=== PATIENT | female | born 1995 | race African-American/Black ===

== ENCOUNTER 2017-07-30 09:29 | Emergency (ER) | payer OTHER, MEDICAID ==
[~2017-07-30] VITALS: Ht 167.6 cm; Wt 78.0 kg
[2017-07-30 10:18] LABS: Urine Bacteria NONE SEEN /hpf (None Seen); Urine Blood 2+ /uL (Negative); Urine Specific Gravity 1.017 (1.001-1.035); Urine WBC 1 /hpf (0 - 5)
[2017-07-30 10:26] LABS: Basophils # (auto) 0 uL; Basophils % (auto) 0.2 % (0.0-2.0); Eosinophils # (auto) 0 uL; Eosinophils % (auto) 0.5 % (0.0-7.0); Hematocrit 39.4 % (36.0-46.0); Hemoglobin 12.9 g/dL (12.2-16.2); Lymphocytes # (auto) 2.2 uL; Lymphocytes % (auto) 38.1 % (10.0-50.0); Mean Corpuscular Hemoglobin 31.4 pg (28.0-32.0); Mean Corpuscular Hgb Conc. 32.6 g/dL (32.0-36.0); Mean Corpuscular Volume 96.4 fL (80.0-100.0); Monocytes # (auto) 0.4 uL; Monocytes % (auto) 6.4 % (0.0-12.0); Neutrophils # (auto) 3.1 uL; Neutrophils % (auto) 54.8 % (37.0-80.0); Platelet Count (auto) 204 10^3/uL (140-450); Red Blood Cells 4.09 10^6/uL (4.0-5.20); Red Cell Distribution Width 13.5 % (11.8-14.3); White Blood Cell 5.7 10^3/uL (4.4-10.8)
[2017-07-30 10:55] LABS: Albumin 3.8 g/dL (3.4-5.0); BUN/Creatinine Ratio 17.3; Bilirubin, Total 0.3 mg/dL (0.2-1.0); Calcium 8.6 mg/dL (8.5-10.1); Potassium 3.7 mmol/L (3.5-5.1); Total Protein 7.2 g/dL (6.4-8.2)
[2017-07-30] MEDS ORDERED: SODIUM CHLORIDE 0.9% 1,000 ML IV ONE (11:59)
[2017-07-30] MEDS ORDERED: KETOROLAC TROMETH 30 MG/ML 1ML VIAL IV ONE (12:00)
[2017-07-30] MEDS ORDERED: METOCLOPRAMIDE HCL 5MG/ml INJ 2ml VIAL IV ONE (12:00)
[2017-07-30 13:05] LABS: Magnesium 1.8 mg/dL (1.6-2.6)
[2017-07-30 13:24] VITALS: BP 122/62
== END 2017-07-30 15:34 | disposition home or self-care (01) ==
LOC: EDBD 09:29 → ER 09:29
DX: K29.70 Gastritis, unspecified, without bleeding (principal); F17.210 Nicotine dependence, cigarettes, uncomplicated; E78.5 Hyperlipidemia, unspecified
CPT/HCPCS: 36415; 74176; 80053; 81001; 81025; 83690; 83735; 84443; 84702; 85025; 96361; 96374; 99285; J1885; J7030

== ENCOUNTER 2017-11-23 21:54 | Emergency (ER) | payer OTHER ==
[~2017-11-23] VITALS: Ht 167.6 cm; Wt 59.0 kg
[2017-11-23 22:24] LABS: Hematocrit 40.8 % (36.0-46.0); Hemoglobin 13.3 g/dL (12.2-16.2); Mean Corpuscular Hemoglobin 31.2 pg (28.0-32.0); Mean Corpuscular Hgb Conc. 32.6 g/dL (32.0-36.0); Mean Corpuscular Volume 95.7 fL (80.0-100.0); Platelet Count (auto) 215 10^3/uL (140-450); Red Blood Cells 4.26 10^6/uL (4.0-5.20); Red Cell Distribution Width 14.3 % (11.8-14.3)
[2017-11-23 22:27] LABS: Band Neutrophils % (manual) 0; Basophils % (manual) 0 (0.0-2.0); Blast Cells 0; Eosinophils % (manual) 0 (0-7); Metamyelocytes % 0; Myelocytes % 0; Promyelocytes % 0; Reactive Lymphocytes 0
[2017-11-23 22:42] LABS: Lymphocytes % (manual) 66 (10.0-50.0); Monocytes % (manual) 5 (0-12)
[2017-11-23 22:56] LABS: Albumin 4.1 g/dL (3.4-5.0); BUN/Creatinine Ratio 9.1; Bilirubin, Total 0.4 mg/dL (0.2-1.0); Potassium 3.7 mmol/L (3.5-5.1); Total Protein 7.6 g/dL (6.4-8.2)
[2017-11-23 23:52] LABS: Urine Bacteria FEW /hpf (None Seen); Urine Blood Negative /uL (Negative); Urine Specific Gravity 1.006 (1.001-1.035); Urine WBC 2 /hpf (0 - 5)
[2017-11-24] MEDS ORDERED: ONDANSETRON HCL 4 MG/2 ML VIAL IV ONE (01:30)
[2017-11-24] MEDS ORDERED: NALBUPHINE HCL 10 MG/1ml INJECTION IV ONE (01:30)
[2017-11-24 02:21] VITALS: BP 112/53
== END 2017-11-24 04:13 | disposition home or self-care (01) ==
LOC: EDBD 21:54 → ER 21:59
DX: N83.209 Unspecified ovarian cyst, unspecified side (principal); F17.210 Nicotine dependence, cigarettes, uncomplicated; E78.5 Hyperlipidemia, unspecified
CPT/HCPCS: 36415; 76830; 76856; 80053; 81001; 84702; 85007; 85027; 96374; 96375; 99285; J2300; J2405

== ENCOUNTER 2023-11-05 11:07 | Emergency (ER) | payer MEDICAID, OTHER ==
[~2023-11-05] VITALS: Ht 167.6 cm; Wt 99.7 kg
[2023-11-05 11:57] LABS: Basophils # (auto) 0 10 ^3/uL (0-0.2); Basophils % (auto) 0.7 % (0.0-2.0); Eosinophils # (auto) 0.2 10 ^3/uL (0-0.8); Eosinophils % (auto) 3.4 % (0.0-7.0); Hematocrit 37.9 % (36.0-46.0); Hemoglobin 12.7 g/dL (12.2-16.2); Mean Corpuscular Hgb Conc. 33.6 g/dL (32.0-36.0); Mean Corpuscular Volume 95.3 fL (80.0-100.0); Monocytes # (auto) 0.4 10 ^3/uL (0-1.3); Monocytes % (auto) 5.6 % (0.0-12.0); Neutrophils # (auto) 2.7 10 ^3/uL (1.6-8.6); Neutrophils % (auto) 42.3 % (37.0-80.0); Nucleated Red Blood Cells % 0.1 %; Red Blood Cells 3.98 10^6/uL (4.0-5.20); Red Cell Distribution Width 13.6 % (11.8-14.3); White Blood Cell 6.3 10^3/uL (4.4-10.8)
[2023-11-05 12:07] LABS: Chloride 111 mmol/L (98-107); Potassium 4.4 mmol/L (3.5-5.1); Sodium 141 mmol/L (136-145)
[2023-11-05 12:08] LABS: Anion Gap 2 (5-15); Carbon Dioxide 28 mmol/L (20-30)
[2023-11-05 12:09] LABS: Calcium 8.7 mg/dL (8.7-10.4)
[2023-11-05 12:13] LABS: BUN/Creatinine Ratio 6.8 (10.0-20.0); Blood Urea Nitrogen 5 mg/dL (9-23); Glucose 109 mg/dL (74-106)
[2023-11-05 13:29] VITALS: BP 118/46; PULSE 74; RESP 16; TEMP 98; O2SAT 97
== END 2023-11-05 13:36 | disposition home or self-care (01) ==
LOC: ER 11:11
DX: R60.0 Localized edema (principal); F12.10 Cannabis abuse, uncomplicated; E78.5 Hyperlipidemia, unspecified; I82.403 Acute embolism and thrombosis of unspecified deep veins of lower extremity, bilateral
CPT/HCPCS: 36415; 80048; 85025; 93970

== ENCOUNTER 2023-12-03 19:25 | Emergency (ER) | payer MEDICAID ==
[~2023-12-03] VITALS: Ht 167.6 cm; Wt 100.0 kg
[2023-12-03 19:28] VITALS: BP 117/78; RESP 18; O2SAT 98
[2023-12-03 19:45] LABS: Basophils # (auto) 0 10 ^3/uL (0-0.2); Basophils % (auto) 0.5 % (0.0-2.0); Eosinophils # (auto) 0.3 10 ^3/uL (0-0.8); Eosinophils % (auto) 4.2 % (0.0-7.0); Hematocrit 38.1 % (36.0-46.0); Hemoglobin 12.4 g/dL (12.2-16.2); Lymphocytes # (auto) 3.6 10 ^3/uL (0.4-5.4); Lymphocytes % (auto) 53.3 % (10.0-50.0); Mean Corpuscular Hemoglobin 31.4 pg (28.0-32.0); Mean Corpuscular Hgb Conc. 32.6 g/dL (32.0-36.0); Mean Corpuscular Volume 96.5 fL (80.0-100.0); Monocytes # (auto) 0.4 10 ^3/uL (0-1.3); Neutrophils # (auto) 2.4 10 ^3/uL (1.6-8.6); Nucleated Red Blood Cells % 0.2 %; Platelet Count (auto) 227 10^3/uL (140-450); Red Blood Cells 3.95 10^6/uL (4.0-5.20); Red Cell Distribution Width 13.4 % (11.8-14.3); White Blood Cell 6.8 10^3/uL (4.4-10.8)
[2023-12-03 20:03] LABS: Alanine Aminotransferase 13 U/L (7-40); Albumin 3.6 g/dL (3.2-4.8); Alkaline Phosphatase 66 U/L (46-116); Anion Gap 0 (5-15); Aspartate Aminotransferase 14 U/L (13-40); BUN/Creatinine Ratio 10.3 (10.0-20.0); Blood Urea Nitrogen 8 mg/dL (9-23); Calcium 9.1 mg/dL (8.7-10.4); Carbon Dioxide 29 mmol/L (20-30); Chloride 111 mmol/L (98-107); Glucose 86 mg/dL (74-106); Magnesium 1.6 mg/dL (1.6-2.6); Sodium 140 mmol/L (136-145)
[2023-12-03 20:04] LABS: Bilirubin, Total 0.2 mg/dL (0.2-1.0); Total Protein 5.3 g/dL (5.7-8.2)
[2023-12-03 20:06] LABS: INR 0.99 (0.9-1.15); Partial Thromboplastin Time 25.1 SEC (24.5-34.5); Prothrombin Time 10.5 sec (9.3-11.8)
[2023-12-03 20:23] VITALS: PULSE 77
[2023-12-03] MEDS: LORazepam 0.5 MG TAB PO ONE (21:57)
== END 2023-12-03 22:07 | disposition home or self-care (01) ==
LOC: ER 19:25
DX: F41.9 Anxiety disorder, unspecified (principal); R07.89 Other chest pain; E78.5 Hyperlipidemia, unspecified; F15.90 Other stimulant use, unspecified, uncomplicated; Z98.890 Other specified postprocedural states; Z79.899 Other long term (current) drug therapy
CPT/HCPCS: 36415; 71045; 80053; 83735; 83880; 84484; 85025; 85610; 85730; 93005

== ENCOUNTER 2024-03-23 02:05 | Emergency (ER) | payer MEDICAID ==
[~2024-03-23] VITALS: Ht 167.6 cm; Wt 99.3 kg
--- NOTE | 2024-03-23 02:24 | ED.PDOC ---
SOB-HPI HPI Comments 29-year-old female who came to ER for shortness of breath. About an hour ago, patient was on her way to work when she started having dry nonproductive cough associated with nausea, shortness of breath and chest tightness. Patient does have history of bronchitis. No fever noted. Patient coming in for further evaluation and management Chief Complaint: Shortness of breath Time Seen by MD: 02:23 Primary Care Provider: unknown Reviewed notes: Nurses Notes Information Source: Patient Mode of Arrival: Ambulatory Severity: Moderate Timing: Minutes Duration: Since onset Context: At Rest, With Light Exertion PE Risk Factors: None History of: Other (Bronchitis) Prehospital treatment: None Modifying Factors: Nothing Associated Signs and Symptoms: Cough, Chest Pain If cough with SOB: Non-Productive Past Medical History PAST MEDICAL HISTORY: High Lipids Past Medical History (Other): Bronchitis Surgical History: Denies all surgeries 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 TABLE 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 ENTRY TABLE OPERATOR History, Ovarian Cysts Family History Family History: Reviewed,noncontributory to illness Social History Smoker: Non-Smoker Alcohol: Occasionally Drugs: Denies Drug Use Lives In: Home Constitutional: denies: chills, diaphoresis, fatigue, fever, malaise, sweats, weakness, others EENTM: denies: blurred vision, double vision, ear bleeding, ear discharge, ear drainage, ear pain, ear ringing, eye pain, eye redness, hearing loss, mouth pain, mouth swelling, nasal discharge, nose bleeding, nose congestion, nose pain, photophobia, tearing, throat pain, throat swelling, voice changes, others Respiratory: reports: cough, SOB at rest, shortness of breath; denies: hemoptysis, orthopnea, SOB with excertion, stridor, wheezing, others Cardiovascular: reports: chest pain; denies: dizzy spells, diaphoresis, Dyspnea on exertion, edema, irregular heart beat, left arm pain, lightheadedness, palpitations, PND, syncope, others Gastrointestinal: reports: nausea; denies: abdomen distended, abdominal pain, blood streaked bowels, constipated, diarrhea, dysphagia, difficulty swallowing, hematemesis, melena, poor appetite, poor fluid intake, rectal bleeding, rectal pain, vomiting, others Genitourinary: denies: abnormal vagina bleeding, burning, dyspareunia, dysuria, flank pain, frequency, hematuria, incontinence, pain, , vagina discharge, urgency, others Neurological: denies: dizziness, fainting, headache, left sided numbness, left sided weakness, numbness, paresthesia, pre-existing deficit, right sided numbness, right sided weakness, seizure, speech problems, tingling, tremors, weakness, others Musculoskeletal: denies: back pain, gout, joint pain, joint swelling, muscle pain, muscle stiffness, neck pain, others Integumetry: denies: bruises, change in color, change in hair/nails, dryness, laceration, lesions, lumps, rash, wounds, others Allergic/Immunocompromised: denies: Difficulty Healing, Frequent Infections, Hi ves, Itching, others Hematologic/Lymphatic: denies: anemia, blood clots, easy bleeding, easy bruising, swollen glands, others Endocrine: denies: excessive hunger, excessive sweating, excessive thirst, excessive urination, flushing, intolerance to cold, intolerance to heat, unexplained weight gain, unexplained weight loss, others Psychiatric: denies: anxiety, bipolar disorder, depression, hopeless, panic disorder, schizophrenia, sleepless, suicidal, others Physical Exam General Appearance: No Apparent Distress, Normal HEENT: Normal ENT Inspection, Pharynx Normal, TMs Normal Neck: Full Range of Motion, Non-Tender, Normal, Normal Inspection Respiratory: Chest Non-Tender, Lungs Clear, No Accessory Muscle Use, No Respiratory Distress, Normal Breath Sounds Cardiovascular: No Edema, No JVD, No Murmur, No Gallop, Normal Peripheral P ulses, Regular Rate/Rhythm Breast Exam: Deferred Gastrointestinal: No Organomegaly, Non Tender, No Pulsatile Mass, Normal Bowel Sounds, Soft Genitalia: Deferred Pelvic: Deferred Rectal: Deferred Extremities: No calf tenderness, Normal capillary refill, Normal inspection, Normal range of motion, Non-tender, No pedal edema Musculoskeletal : Apperance: Normal Neurologic: Alert, brand director II-XII nml as Tested, No Motor Deficits, Normal Affect, Normal Mood, No Sensory Deficits Cerebellar Function: Normal Reflexes: Normal Skin: Dry, Normal Color, Warm Lymphatic: No Adenopathy Was a procedure done? Was a procedure done?: No Differential Dx Differential Diagnosis: Anxiety, Asthma, Bronchitis, Myocardial infarction, Panic Attack, Pneumonia X-Ray, Labs, Meds, VS Vital Signs Date Time Temp Pulse Resp B/P (MAP) Pulse Ox O2 Delivery O2 Flow Rate FiO2 03/23/24 03:18 84 03/23/24 02:14 97 03/23/24 02:05 98.9 92 18 118/77 (91) 99 Lab Test 03/23/24 03:10 03/23/24 02:24 03/23/24 02:12 Range/Units Troponin I High Sensitivity < 3 L < 3 L </=34 ng/L Influenza Type A Antigen Negative Negative Influenza Type B Antigen Negative Negative SARS-CoV-2 Antigen (Rapid) Negative NEGATIVE White Blood Count 5.4 4.4-10.8 10^3/uL Red Blood Count 4.02 4.0-5.20 10^6/uL Hemoglobin 12.5 12.2-16.2 g/dL Hematocrit 38.1 36.0-46.0 % Mean Corpuscular Volume 94.7 80.0-100.0 fL Mean Corpuscular Hemoglobin 31.2 28.0-32.0 pg Mean Corpuscular Hemoglobin Concent 32.9 32.0-36.0 g/dL Red Cell Distribution Width 13.9 11.8-14.3 % Platelet Count 219 140-450 10^3/uL Mean Platelet Volume 8.4 6.9-10.8 fL Neutrophils (%) (Auto) 62.2 37.0-80.0 % Lymphocytes (%) (Auto) 31.1 10.0-50.0 % Monocytes (%) (Auto) 5.3 0.0-12.0 % Eosinophils (%) (Auto) 1.0 0.0-7.0 % Basophils (%) (Auto) 0.4 0.0-2.0 % Neutrophils # (Auto) 3.3 1.6-8.6 10 ^3/uL Lymphocytes # (Auto) 1.7 0.4-5.4 10 ^3/uL Monocytes # (Auto) 0.3 0-1.3 10 ^3/uL Eosinophils # (Auto) 0.1 0-0.8 10 ^3/uL Basophils # (Auto) 0 0-0.2 10 ^3/uL Nucleated Red Blood Cells 0.1 % Sodium Level 139 136-145 mmol/L Potassium Level 4.1 3.5-5.1 mmol/L Chloride Level 106 98-107 mmol/L Carbon Dioxide Level 27 20-31 mmol/L Anion Gap 6 5-15 Blood Urea Nitrogen 9 9-23 mg/dL Creatinine 0.82 0.550-1.02 mg/dL Glomerular Filtration Rate Calc 99 >90 mL/min BUN/Creatinine Ratio 11.0 10.0-20.0 Serum Glucose 106 74-106 mg/dL Calcium Level 10.0 8.7-10.4 mg/dL Time of 1ST Reevaluation: 02:20 Reevaluation 1ST: Unchanged Patient Education/Counseling: Diagnosis, Treatment Family Education/Counseling: No Family Present Departure 1 Departure Time of Disposition: 04:39 (Patient likely with viral syndrome. We will discharge patient home with outpatient follow up) Impression: Primary Impression: Acute viral syndrome Additional Impression: Shortness of breath Disposition: 01 HOME / SELF CARE / HOMELESS Condition: Stable Additional Instructions: You likely have a viral illness. It is important to stay well rested and well hydrated. You can take Tylenol and Motrin as needed for pain and fever. For a sore throat you can drink warm tea with honey. You can take [id number] pseudoephedrine for nasal congestion. He should follow up with your regular doctor within 1 week to ensure you are doing better. If your symptoms worsen or you have any other concerns please return to the emergency room. Discharged With: Self Critical Care Note Critical Care Time?: No Stability Stability form required: No Heart Score Heart Score: Heart Score Response (Comments) Value History Slightly Suspicious 0 EKG Normal 0 Age <45 0 Risk Factors 1 or 2 risk factors 1 Troponin Normal limit 0 Total 1 I personally scribed for PATRICIA WHITE MD ([email or web address]) on 03/23/24 at 02:24. Electronically submitted by Steven River ([email or web address]). PATRICIA WHITE MD Mar 23, 2024 02:24
[2024-03-23 03:14] LABS: Basophils # (auto) 0 10 ^3/uL (0-0.2); Basophils % (auto) 0.4 % (0.0-2.0); Eosinophils # (auto) 0.1 10 ^3/uL (0-0.8); Hematocrit 38.1 % (36.0-46.0); Hemoglobin 12.5 g/dL (12.2-16.2); Lymphocytes # (auto) 1.7 10 ^3/uL (0.4-5.4); Lymphocytes % (auto) 31.1 % (10.0-50.0); Mean Corpuscular Hemoglobin 31.2 pg (28.0-32.0); Mean Corpuscular Hgb Conc. 32.9 g/dL (32.0-36.0); Mean Corpuscular Volume 94.7 fL (80.0-100.0); Monocytes # (auto) 0.3 10 ^3/uL (0-1.3); Monocytes % (auto) 5.3 % (0.0-12.0); Neutrophils # (auto) 3.3 10 ^3/uL (1.6-8.6); Neutrophils % (auto) 62.2 % (37.0-80.0); Nucleated Red Blood Cells % 0.1 %; Platelet Count (auto) 219 10^3/uL (140-450); Red Blood Cells 4.02 10^6/uL (4.0-5.20); Red Cell Distribution Width 13.9 % (11.8-14.3); White Blood Cell 5.4 10^3/uL (4.4-10.8)
[2024-03-23 03:25] LABS: Anion Gap 6 (5-15); Carbon Dioxide 27 mmol/L (20-31); Chloride 106 mmol/L (98-107); Potassium 4.1 mmol/L (3.5-5.1); Sodium 139 mmol/L (136-145)
[2024-03-23 03:31] LABS: Blood Urea Nitrogen 9 mg/dL (9-23); Glucose 106 mg/dL (74-106)
[2024-03-23 03:45] LABS: COVID19 ANTIGEN SOFIA FIA NEGATIVE (NEGATIVE)
[2024-03-23 03:46] LABS: Rapid Influenza A Negative (Negative); Rapid Influenza B Negative (Negative)
--- NOTE | 2024-03-23 04:21 | DVH ---
CHEST RADIOGRAPH Indication: sob Technique: Frontal and lateral view of the chest was obtained Comparison: None IMPRESSION: The heart appears normal in size. The lungs appear clear without focal airspace opacity, effusion, o r pneumothorax.
[2024-03-23 04:38] VITALS: BP 129/67; TEMP 98.9
[2024-03-23] MEDS: ALBUTEROL SULF 2.5 MG/0.5ML(0.5%) NEB SOLN NEB ONE (04:53)
[2024-03-23 04:54] VITALS: PULSE 85; RESP 16; O2SAT 99
[2024-03-23] MEDS: DexAMETHasone SOD PHOS 4 MG/1ML SDV INJ PO ONE (04:56)
--- NOTE | 2024-03-25 05:49 | ECG ---
[facility] Test Date: 2024-03-23 Test Time: 02:14:28 Pat Name: CORA NASSAR Department: ED Room: Gender: F Gallery Assistant: bautista : 1995 Requested By: PATRICIA WHITE Order Number: [id number] Reading MD: Measurements Intervals [place] Rate: 97 P: 81 GA: 139 QRS: 71 QRSD: 88 T: 60 QT: 356 QTc: 452 Interpretive Statements Sinus rhythm Please click the below link to view image of tracing.
--- NOTE | 2024-03-26 12:58 | ECG ---
[facility] Test Date: 2024-03-23 Test Time: 03:18:14 Pat Name: CORA NASSAR Department: ER Room: Gender: F Ostomy Care Nurse: ER : 1995 Requested By: PATRICIA WHITE Order Number: [id number] Reading MD: Measurements Intervals [place] Rate: 84 P: 61 [place]: 141 QRS: 72 QRSD: 92 T: 50 QT: 355 QTc: 420 Interpretive Statements Sinus rhythm Please click the below link to view image of tracing.
== END 2024-03-23 05:13 | disposition home or self-care (01) ==
LOC: ER 02:05
DX: B34.9 Viral infection, unspecified (principal); R06.02 Shortness of breath; E78.5 Hyperlipidemia, unspecified; Z20.822 Contact with and (suspected) exposure to COVID-19
CPT/HCPCS: 36415; 71046; 80048; 84484; 85025; 87426; 87804; 93005; 94640; J1100

== ENCOUNTER 2024-03-24 16:42 | Inpatient (IN) | payer MEDICAID ==
[~2024-03-24] VITALS: Ht 167.6 cm; Wt 98.3 kg
--- NOTE | 2024-03-24 16:59 | ED.PDOC ---
History of Present Illness HPI Comments 29-year-old female came to the ER complaining of shortness a breath cough since Monday. She was seen in this ER yesterday for which she was given a steroid breathing treatment and sent home without a prescription. Patient comes back stating that she got worse. She is having a fever since this morning. Denies smoking. Denies asthma COPD. Denies any other symptoms. 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 ENGINEERING MANAGER History, Ovarian Cysts Family History Family History: Reviewed,noncontributory to illness Social History Smoker: Non-Smoker Alcohol: Occasionally Drugs: Denies Drug Use Lives In: Home Constitutional: reports: fever; denies: chills, diaphoresis, fatigue, malaise, sweats, weakness, others EENTM: denies: blurred vision, double vision, ear bleeding, ear discharge, ear drainage, ear pain, ear ringing, eye pain, eye redness, hearing loss, mouth pain, mouth swelling, nasal discharge, nose bleeding, nose congestion, nose pain, photophobia, tearing, throat pain, throat swelling, voice changes, others Respiratory: reports: cough, shortness of breath; denies: hemoptysis, orthopnea, SOB at rest, SOB with excertion, stridor, wheezing, others Cardiovascular: denies: chest pain, dizzy spells, diaphoresis, Dyspnea on exer tion, edema, irregular heart beat, left arm pain, lightheadedness, palpitations, PND, syncope, others Gastrointestinal: denies: abdomen distended, abdominal pain, blood streaked bowels, constipated, diarrhea, dysphagia, difficulty swallowing, hematemesis, melena, nausea, poor appetite, poor fluid intake, rectal bleeding, rectal pain, vomiting, others Genitourinary: denies: abnormal vagina bleeding, burning, dyspareunia, dysuria, flank pain, frequency, hematuria, incontinence, pain, , vagina discharge, urgency, others Neurological: denies: dizziness, fainting, headache, left sided numbness, left sided weakness, numbness, paresthesia, pre-existing deficit, right sided numbness, right sided weakness, seizure, speech problems, tingling, tremors, weakness, others Musculoskeletal: denies: back pain, gout, joint pain, joint swelling, muscle pain, muscle stiffness, neck pain, others Integumetry: denies: bruises, change in color, change in hair/nails, dryness, laceration, lesions, lumps, rash, wounds, others Allergic/Immunocompromised: denies: Difficulty Healing, Frequent Infections, Hives, Itching, others Hematologic/Lymphatic: denies: anemia, blood clots, easy bleeding, easy bruising, swollen glands, others Endocrine: denies: excessive hunger, excessive sweating, excessive thirst, excessive urination, flushing, intolerance to cold, intolerance to heat, unexplained weight gain, unexplained weight loss, others Psychiatric: denies: anxiety, bipolar disorder, depression, hopeless, panic disorder, schizophrenia, sleepless, suicidal, others Physical Exam General Appearance: Moderate Distress HEENT: Normal ENT Inspection, Pharynx Normal, TMs Normal Neck: Full Range of Motion, Non-Tender, Normal, Normal Inspection Respiratory: Lungs Clear, Respiratory Distress, Other (Coarse breath sounds) Cardiovascular: No Edema, No JVD, No Murmur, No Gallop, Normal Peripheral Pulses, Regular Rate/Rhythm Breast Exam: Deferred Gastrointestinal: No Organomegaly, Non Tender, No Pulsatile Mass, Normal Bowel Sounds, Soft Genitalia: Deferred Pelvic: Deferred Rectal: Deferred Extremities: No calf tenderness, Normal capillary refill, Normal inspection, Normal range of motion, Non-tender, No pedal edema Musculoskeletal : Apperance: Normal Neurologic: Alert, No Motor Deficits, No Sensory Deficits Cerebellar Function: NOT DONE Reflexes: NOT DONE Skin: Normal Color Peripheral Pulses: 3+ Radial (R), 3+ Radial (L) Lymphatic: No Adenopathy Was a procedure done? Was a procedure done?: No Differential Dx Considerations may include: Pneumonia Electrolyte imbalance X-Ray, Labs, Meds, VS Patient alert. Complaining of cough shortness a breath. Has been seen in this ER yesterday. Vitals stable. Answering all questions. Reviewed her previous visit. Was given Rocephin. Was given azithromycin. Was given Solu-Medrol. Reviewed her previous visit. Explained to the patient. Continue cardiac monitoring. Time of 1ST Reevaluation: 16:58 Reevaluation 1ST: Unchanged Patient Education/Counseling: Diagnosis, Treatment, Prognosis Family Education/Counseling: No Family Present Departure 1 Departure Time of Disposition: 16:59 Impression: Primary Impression: Acute respiratory distress Additional Impression: Pneumonitis Disposition: ADMITTED INPATIENT Admit to: Med Surg Condition: Guarded Critical Care Note Critical Care Time?: Yes (45 min-critical care time only) Stability Stability form required: No Heart Score Heart Score: Heart Score Response (Comments) Value History N/A 0 EKG N/A 0 Age N/A 0 Risk Factors N/A 0 Troponin N/A 0 Total 0 KAYLA MAYER MD Mar 24, 2024 16:59
[2024-03-24] MEDS ORDERED: methylPREDNISolone SOD SUCC 125 MG/2 ML VL IV ONE (17:00)
[2024-03-24] MEDS ORDERED: cefTRIAXone 1GM/50ML D5W 50 ML IV ONE (17:00)
[2024-03-24] MEDS ORDERED: AZITHROMYCIN 500MG/ 250ML 250 ML IV ONE (17:00)
[2024-03-24] MEDS ORDERED: ACETAMINOPHEN 500 MG TAB or CAP PO ONE (17:00)
[2024-03-24 17:22] LABS: Hematocrit 40.4 % (36.0-46.0); Hemoglobin 13.5 g/dL (12.2-16.2); Mean Corpuscular Hemoglobin 31.3 pg (28.0-32.0); Mean Corpuscular Hgb Conc. 33.6 g/dL (32.0-36.0); Mean Corpuscular Volume 93.2 fL (80.0-100.0); Platelet Count (auto) 182 10^3/uL (140-450); Red Blood Cells 4.33 10^6/uL (4.0-5.20); Red Cell Distribution Width 13.9 % (11.8-14.3)
[2024-03-24 17:25] LABS: Basophils % (manual) 0 (0.0-2.0); Blast Cells 0; Eosinophils % (manual) 0 (0-7); Metamyelocytes % 0; Monocytes % (manual) 0 (0-12); Myelocytes % 0; Promyelocytes % 0; Reactive Lymphocytes 0
[2024-03-24 17:32] LABS: Chloride 107 mmol/L (98-107); Potassium 3.5 mmol/L (3.5-5.1); Sodium 139 mmol/L (136-145)
[2024-03-24 17:33] LABS: Anion Gap 10 (5-15); Calcium 9.9 mg/dL (8.7-10.4); Carbon Dioxide 22 mmol/L (20-31)
[2024-03-24 17:38] LABS: Glucose 97 mg/dL (74-106)
--- NOTE | 2024-03-24 17:41 | DVH ---
EXAM: XY CHEST PORTABLE TECHNIQUE: Single frontal chest radiograph CLINICAL HISTORY: sob COMPARISON: XY CHEST PORTABLE on DOS: 12/03/23 Findings/Impression: Frontal chest radiograph demonstrates no acute osseous or superficial soft tissue abnormalities. The trachea is midline. The cardiac silhouette and mediastinum are within normal limits. No pneumothorax, pleural effusions, or consolidations.
[2024-03-24 18:01] LABS: Blood Urea Nitrogen 7 mg/dL (9-23)
[2024-03-24 18:24] LABS: COVID19 ANTIGEN SOFIA FIA NEGATIVE (NEGATIVE)
[2024-03-24 18:26] LABS: Rapid Influenza B Negative (Negative)
[2024-03-24 18:28] LABS: Rapid Influenza A Positive (Negative)
[2024-03-24 18:59] LABS: Band Neutrophils % (manual) 30; Lymphocytes % (manual) 20 (10.0-50.0); Platelet Estimate Adequate; RBC Morphology Normal
[2024-03-24] MEDS ORDERED: TEMAZEPAM 15 MG CAP PO PRN (19:00)
[2024-03-24] MEDS ORDERED: ALBUTEROL SULF 2.5 MG/0.5ML(0.5%) NEB SOLN NEB PRN (19:00)
[2024-03-24] MEDS ORDERED: ONDANSETRON HCL 4 MG/2 ML VIAL IV PRN (19:00)
[2024-03-24] MEDS ORDERED: ACETAMINOPHEN 325 MG TAB PO PRN (19:00)
[2024-03-25 02:12] VITALS: BP 95/58; PULSE 113; RESP 18; TEMP 100.9; O2SAT 100
--- NOTE | 2024-03-25 04:09 | DVHHP2 ---
History of Present Illness Reason for Visit: Shortness of breath History of Present Illness 29-year-old female presents for evaluation of shortness for breath. Patient endorses a three day history of worsening shortness for breath with a productive cough. Patient was seen yesterday urgency department and sent home without a p rescription. Patient reports worsening cough and fever. Denies any other acute complaints at the moment. Past Medical History Dyslipidemia Past Surgical History Denies Family History Noncontributory Smoke: No ALCOHOL: occassional Drugs: None Lives: with Family Review of Systems Review of Systems Review of systems currently negative addressed in HPI. Allergies: Coded Allergies: NO KNOWN ALLERGIES (Unverified , 07/30/17) Medications Current Medications Medications Dose Ordered Sig/Ariadna Route Start Time Stop Time Status Last Admin Dose Admin Azithromycin 250 ml @ 125 mls/hr DAILY IV 03/25/24 10:00 Albuterol 2.5 mg Q6HPRN PRN NEB 03/24/24 19:00 Temazepam 15 mg QHSP PRN PO 03/24/24 19:00 Ondansetron HCl 4 mg Q4HP PRN IV 03/24/24 19:00 Acetaminophen 650 mg Q6HP PRN PO 03/24/24 19:00 Exam Vital Signs Vital Signs Date Time Temp Pulse Resp B/P (MAP) Pulse Ox O2 Delivery O2 Flow Rate FiO2 03/25/24 02:12 100.9 113 18 95/58 100 21 100.9 03/24/24 16:58 Room Air* 0 Exam Gen: 29-year-old female in mild distress Skin: Warm, dry, normal color and texture, no rash. HEENT: Normocephalic atraumatic, mucous membranes moist and pink. Neck: Cervical and supraclavicular nodes normal without enlargement, trachea is midline, thyroid gland is normal without masses. Pulmonary: Diminished breath sounds bilaterally Cardiac: Regular rate and rhythm. No murmur Abdomen: Soft, nontender, nondistended, bowel sounds present all 4 quadrants, no guarding, no rigidity, no organomegaly. Extremities: No cyanosis, clubbing, no edema Neuro: Cranial nerves II through XII grossly intact, normal affect and speech, no focal motor deficits. Labs/Xrays ORDERING PHYSICIAN: KAYLA MAYER MD PROCEDURE(s): CXRP - CHEST PORTABLE REASON: sob ORDER NUMBER(s): [id number], ACCESSION NUMBER(s): [id number] EXAM: XY CHEST PORTABLE TECHNIQUE: Single frontal chest radiograph CLINICAL HISTORY: sob COMPARISON: XY CHEST PORTABLE on DOS: 12/03/23 Findings/Impression: Frontal chest radiograph demonstrates no acute osseous or superficial soft tissue abnormalities. The trachea is midline. The cardiac silhouette and mediastinum are within normal limits. No pneumothorax, pleural effusions, or consolidations. Labs Test 03/24/24 19:06 03/24/24 17:08 03/24/24 16:54 Range/Units Lactic Acid Level 0.7 0.4-2.0 mmol/L White Blood Count 4.0 #L 4.4-10.8 10^3/uL Red Blood Count 4.33 4.0-5.20 10^6/uL Hemoglobin 13.5 12.2-16.2 g/dL Hematocrit 40.4 36.0-46.0 % Mean Corpuscular Volume 93.2 80.0-100.0 fL Mean Corpuscular Hemoglobin 31.3 28.0-32.0 pg Mean Corpuscular Hemoglobin Concent 33.6 32.0-36.0 g/dL Red Cell Distribution Width 13.9 11.8-14.3 % Platelet Count 182 140-450 10^3/uL Mean Platelet Volume 8.9 6.9-10.8 fL Neutrophils (%) (Auto) 37.0-80.0 % Lymphocytes (%) (Auto) 10.0-50.0 % Monocytes (%) (Auto) 0.0-12.0 % Basophils (%) (Auto) 0.0-2.0 % Neutrophils # (Auto) 1.6-8.6 10 ^3/uL Lymphocytes # (Auto) 0.4-5.4 10 ^3/uL Monocytes # (Auto) 0-1.3 10 ^3/uL Differential Total Cells Counted 100.0 100 Neutrophils % (Manual) 50 37.0-80.0 Band Neutrophils % (Manual) 30 Lymphocytes % (Manual) 20 10.0-50.0 Monocytes % (Manual) 0 0-12 Eosinophils % (Manual) 0 0-7 Basophils % (Manual) 0 0.0-2.0 Metamyelocytes % (manual) 0 Myelocytes % (Manual) 0 Promyelocytes % (Manual) 0 Blast Cells % (Manual) 0 Reactive Lymphocytes 0 Platelet Estimate Adequate Red Blood Cell Morphology Normal D-Dimer, Quantitative 0.38 0.0-0.49 mg/L FEU Sodium Level 139 136-145 mmol/L Potassium Level 3.5 3.5-5.1 mmol/L Chloride Level 107 98-107 mmol/L Carbon Dioxide Level 22 20-31 mmol/L Anion Gap 10 5-15 Blood Urea Nitrogen 7 L 9-23 mg/dL Creatinine 0.88 0.550-1.02 mg/dL Glomerular Filtration Rate Calc 91 >90 mL/min BUN/Creatinine Ratio 8.0 L 10.0-20.0 Serum Glucose 97 74-106 mg/dL Calcium Level 9.9 8.7-10.4 mg/dL Influenza Type A Antigen Positive Negative Influenza Type B Antigen Negative Negative SARS-CoV-2 Antigen (Rapid) Negative NEGATIVE Assessment/Plan Assessment/Plan Assessment Acute pneumonitis Acute respiratory distress SIRS Plan Admit the patient to [facility] to the hospitalist Med [facility] Azithromycin Continue treatment per orders. Plan discussed with: Patient My Orders Orders - JOE MOORE Procedure Category Date Status Time Azithromycin 500mg/ PHA 03/25/24 In Process 250ml (Zithromax 50 10:00 Albuterol Medneb PHA 03/24/24 In Process (Ventolin Medneb) 19:00 Basic Metabolic Panel LAB 03/25/24 Logged 04:00 Regular Diet DIET 03/25/24 Transmitted Breakfast Admit ADMIT 03/24/24 Transmitted 18:50 Temazepam (Restoril) PHA 03/24/24 In Process 19:00 Ondansetron Hcl PHA 03/24/24 In Process (Zofran) 19:00 Complete Blood Count LAB 03/25/24 Logged 04:00 Condition: Stable ANDREA 03/24/24 In Process 18:50 Acetaminophen Tablet PHA 03/24/24 In Process (Tylenol Tablet) 19:00 Bedrest With Bathroom ANDREA 03/24/24 In Process Privileg 18:50 Date of Service: Mar 24, 2024 Billing Provider: JOE MOORE Common Visit Codes: [id number] INP/OBS CARE (MOD) JOE MOORE Mar 25, 2024 04:09
[2024-03-25 06:50] LABS: Anion Gap 8 (5-15); Carbon Dioxide 22 mmol/L (20-31); Chloride 107 mmol/L (98-107); Sodium 137 mmol/L (136-145)
[2024-03-25 06:51] LABS: Potassium 3.4 mmol/L (3.5-5.1)
[2024-03-25 06:52] LABS: Calcium 9.6 mg/dL (8.7-10.4)
[2024-03-25 06:56] LABS: BUN/Creatinine Ratio 11.5 (10.0-20.0); Blood Urea Nitrogen 9 mg/dL (9-23); Glucose 90 mg/dL (74-106)
[2024-03-25 06:57] LABS: Basophils # (auto) 0 10 ^3/uL (0-0.2); Basophils % (auto) 0.6 % (0.0-2.0); Eosinophils # (auto) 0 10 ^3/uL (0-0.8); Eosinophils % (auto) 0.1 % (0.0-7.0); Hematocrit 38.6 % (36.0-46.0); Hemoglobin 12.9 g/dL (12.2-16.2); Lymphocytes # (auto) 1.2 10 ^3/uL (0.4-5.4); Lymphocytes % (auto) 46.9 % (10.0-50.0); Mean Corpuscular Hemoglobin 31.3 pg (28.0-32.0); Mean Corpuscular Hgb Conc. 33.5 g/dL (32.0-36.0); Mean Corpuscular Volume 93.4 fL (80.0-100.0); Monocytes # (auto) 0.3 10 ^3/uL (0-1.3); Monocytes % (auto) 13.6 % (0.0-12.0); Neutrophils % (auto) 38.8 % (37.0-80.0); Nucleated Red Blood Cells % 0.3 %; Platelet Count (auto) 160 10^3/uL (140-450); Red Blood Cells 4.13 10^6/uL (4.0-5.20); Red Cell Distribution Width 13.7 % (11.8-14.3); White Blood Cell 2.5 10^3/uL (4.4-10.8)
[2024-03-25 09:10] VITALS: O2SAT 97
[2024-03-25] MEDS: AZITHROMYCIN 500MG/ 250ML 250 ML IV SCH (10:23)
[2024-03-25 10:30] VITALS: BP 104/63; PULSE 93; RESP 17; O2SAT 97
[2024-03-25] MEDS ORDERED: AZIT-185 PO (11:16)
[2024-03-25] MEDS ORDERED: HYDR-4902 PO (11:16)
[2024-03-25 13:47] VITALS: BP 103/69; PULSE 84; RESP 16; O2SAT 97
--- NOTE | 2024-03-25 15:03 | DVHDS2 ---
Discharge Summary Date of Admission Mar 24, 2024 at 18:50 Date of Discharge: Mar 25, 2024 Labs/Diagnostic Data: Laboratory Results Test 03/25/24 06:17 03/24/24 19:06 03/24/24 17:08 03/24/24 16:54 White Blood Count 2.5 10^3/uL (4.4-10.8) Red Blood Count 4.13 10^6/uL (4.0-5.20) Hemoglobin 12.9 g/dL (12.2-16.2) Hematocrit 38.6 % (36.0-46.0) Mean Corpuscular Volume 93.4 fL (80.0-100.0) Mean Corpuscular Hemoglobin 31.3 pg (28.0-32.0) Mean Corpuscular Hemoglobin Concent 33.5 g/dL (32.0-36.0) Red Cell Distribution Width 13.7 % (11.8-14.3) Platelet Count 160 10^3/uL (140-450) Mean Platelet Volume 9.1 fL (6.9-10.8) Neutrophils (%) (Auto) 38.8 % (37.0-80.0) Lymphocytes (%) (Auto) 46.9 % (10.0-50.0) Monocytes (%) (Auto) 13.6 % (0.0-12.0) Eosinophils (%) (Auto) 0.1 % (0.0-7.0) Basophils (%) (Auto) 0.6 % (0.0-2.0) Neutrophils # (Auto) 1.0 10 ^3/uL (1.6-8.6) Lymphocytes # (Auto) 1.2 10 ^3/uL (0.4-5.4) Monocytes # (Auto) 0.3 10 ^3/uL (0-1.3) Eosinophils # (Auto) 0 10 ^3/uL (0-0.8) Basophils # (Auto) 0 10 ^3/uL (0-0.2) Nucleated Red Blood Cells 0.3 % Sodium Level 137 mmol/L (136-145) Potassium Level 3.4 mmol/L (3.5-5.1) Chloride Level 107 mmol/L (98-107) Carbon Dioxide Level 22 mmol/L (20-31) Anion Gap 8 (5-15) Blood Urea Nitrogen 9 mg/dL (9-23) Creatinine 0.78 mg/dL (0.550-1.02) Glomerular Filtration Rate Calc 105 mL/min (>90) BUN/Creatinine Ratio 11.5 (10.0-20.0) Serum Glucose 90 mg/dL (74-106) Calcium Level 9.6 mg/dL (8.7-10.4) Lactic Acid Level 0.7 mmol/L (0.4-2.0) Differential Total Cells Counted 100.0 (100) Neutrophils % (Manual) 50 (37.0-80.0) Band Neutrophils % (Manual) 30 Lymphocytes % (Manual) 20 (10.0-50.0) Monocytes % (Manual) 0 (0-12) Eosinophils % (Manual) 0 (0-7) Basophils % (Manual) 0 (0.0-2.0) Metamyelocytes % (manual) 0 Myelocytes % (Manual) 0 Promyelocytes % (Manual) 0 Blast Cells % (Manual) 0 Reactive Lymphocytes 0 Platelet Estimate Adequate Red Blood Cell Morphology Normal D-Dimer, Quantitative 0.38 mg/L FEU (0.0-0.49) Influenza Type A Antigen Positive (Negative) Influenza Type B Antigen Negative (Negative) SARS-CoV-2 Antigen (Rapid) Negative (NEGATIVE) Other Laboratory Tests 03/25/24 06:17 Brief Hx & Hospital Course: 29-year-old female presents for evaluation of shortness for breath. Patient endorses a three day history of worsening shortness for breath with a productive cough. Patient was seen yesterday urgency department and sent home without a prescription. Patient reports worsening cough and fever. Condition at Discharge: Good Final Diagnosis/Problems List community acquired pneumonia due to gram negative SIRS sepsis present on admision ruled out acute hypoxic respiratory failure due to pneumonia resolved Discharge Disposition: Home Discharge Instruct/Medications Diet: Regular Activity: No Restrictions, As Tolerated Discharge Statement: "Patient was advised to return to the ER or call 911 if any headaches, dizziness, shortness of breath, chest pain, abdominal pain, bleeding, fevers, or worsening of medical condition. Patient was counseled about treatment plan, medications, possible side effects, patientverbalized understanding. All questions were answered to the best of my ability. This discharge took greater then 30 minutes in planning, reviewing documentation, counseling the patient, and discussing with other team members." ASSESSMENT ASSESSMENT Assessment ACUTE PNEUMONITIS Date of Service: Mar 25, 2024 Billing Provider: STEPHENIE JOHNSON MD Common Visit Codes: 61011-CQA/OBS DISCH DAY >30min STEPHENIE JOHNSON MD Mar 25, 2024 15:03
== END 2024-03-25 14:28 | disposition home or self-care (01) | DRG 137 ==
LOC: ER 16:42 → OVERFLOW 18:50
PROVIDERS: ADMIT Nurse Practitioner; ATTEND Hospitalist
DX: J15.69 Pneumonia due to other Gram-negative bacteria (principal); J96.01 Acute respiratory failure with hypoxia; Z20.822 Contact with and (suspected) exposure to COVID-19; J98.4 Other disorders of lung; E78.5 Hyperlipidemia, unspecified; Z79.899 Other long term (current) drug therapy
CPT/HCPCS: 36415; 71045; 80048; 83605; 85007; 85025; 85027; 85379; 87426; 87804; 99291; G0378

== ENCOUNTER 2024-06-16 14:05 | Emergency (ER) | payer MEDICAID ==
[~2024-06-16] VITALS: Ht 167.6 cm; Wt 96.3 kg
[~2024-06-16 14:05] MED LIST: AZIT-185 PO
--- NOTE | 2024-06-16 14:53 | ED.PDOC ---
SOB-HPI HPI Comments 29 y.o female with PMHx of Bronchitis, glaucoma, seasonal allergies, presents to the ED for a chief complaint of substernal chest pain associated with SOB, productive cough, and clear phlegm sputum. Patient reports PNA diagnose and admission 3 months ago at this hospital, since has had some congestion and SOB but states today felt a sharp discomfort on her chest and back. Patient reports seasonal allergies have been active. She denies any fever, nausea, vomiting, or recent sick contact exposure. 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 Family History Family History: Reviewed,noncontributory to illness Social History Smoker: Non-Smoker Alcohol: Occasionally Drugs: Marijuana Lives In: Home Constitutional: denies: chills, diaphoresis, fatigue, fever, malaise, sweats, weakness, others EENTM: denies: blurred vision, double vision, ear bleeding, ear discharge, ear drainage, ear pain, ear ringing, eye pain, eye redness, hearing loss, mouth pain, mouth swelling, nasal discharge, nose bleeding, nose congestion, nose pain, photophobia, tearing, throat pain, throat swelling, voice changes, others Respiratory: reports: cough, SOB at rest, shortness of breath, SOB with excertion; denies: hemoptysis, orthopnea, stridor, wheezing, others Cardiovascular: reports: chest pain; denies: dizzy spells, diaphoresis, Dyspnea on exertion, edema, irregular heart beat, left arm pain, lightheadedness, palp itations, PND, syncope, others Gastrointestinal: denies: abdomen distended, abdominal pain, blood streaked bowels, constipated, diarrhea, dysphagia, difficulty swallowing, hematemesis, melena, nausea, poor appetite, poor fluid intake, rectal bleeding, rectal pain, vomiting, others Genitourinary: denies: abnormal vagina bleeding, burning, dyspareunia, dysuria, flank pain, frequency, hematuria, incontinence, pain, , vagina discharge, urgency, others Neurological: denies: dizziness, fainting, headache, left sided numbness, left sided weakness, numbness, paresthesia, pre-existing deficit, right sided numbness, right sided weakness, seizure, speech problems, tingling, tremors, weakness, others Musculoskeletal: denies: back pain, gout, joint pain, joint swelling, muscle pain, muscle stiffness, neck pain, others Integumetry: denies: bruises, change in color, change in hair/nails, dryness, laceration, lesions, lumps, rash, wounds, others Allergic/Immunocompromised: denies: Difficulty Healing, Frequent Infections, Hives, Itching, others Hematologic/Lymphatic: denies: anemia, blood clots, easy bleeding, easy br uising, swollen glands, others Endocrine: denies: excessive hunger, excessive sweating, excessive thirst, excessive urination, flushing, intolerance to cold, intolerance to heat, unexplained weight gain, unexplained weight loss, others Psychiatric: denies: anxiety, bipolar disorder, depression, hopeless, panic disorder, schizophrenia, sleepless, suicidal, others All Other Systems: Reviewed and Negative Physical Exam General Appearance: No Apparent Distress HEENT: PERRL/EOMI Neck: Full Range of Motion, Normal Inspection Respiratory: No Accessory Muscle Use, No Respiratory Distress, Rhonchi, Other (productive sounding cough) Cardiovascular: No Edema, No JVD, Regular Rate/Rhythm Breast Exam: Deferred Gastrointestinal: Non Tender, Soft Genitalia: Deferred Pelvic: Deferred Rectal: Deferred Extremities: Normal inspection, Normal range of motion, Non-tender, No pedal edema Neurologic: Alert (oriented x 4), Normal Affect, Normal Mood, Other (ambulatory. no gross focal deficit) Cerebellar Function: NOT DONE Reflexes: NOT DONE Skin: Dry, Normal Color, Warm Lymphatic: NOT DONE Was a procedure done? Was a procedure done?: No Differential Dx Differential Diagnosis: Asthma, Bronchitis, CHF, COPD, Pneumonia, Pulmonary Embolism, Respiratory Distress, URI X-Ray, Labs, Meds, VS Vital Signs Date Time Temp Pulse Resp B/P (MAP) Pulse Ox O2 Delivery O2 Flow Rate FiO2 06/16/24 20:44 98.0 85 20 122/68 (86) 99 98.0 3/2/25 17:12 18 95 Room Air* 0 21 06/16/24 17:11 74 16 100 Room Air* 0 21 06/16/24 17:04 98.2 65 19 111/73 (86) 100 98.2 06/16/24 14:26 20 100 Room Air* 0 21 06/16/24 14:20 98.3 79 20 100/54 (69) 100 Lab Test 06/16/24 15:35 Range/Units White Blood Count 4.5 4.4-10.8 10^3/uL Red Blood Count 4.21 4.0-5.20 10^6/uL Hemoglobin 12.8 12.2-16.2 g/dL Hematocrit 39.5 36.0-46.0 % Mean Corpuscular Volume 94.0 80.0-100.0 fL Mean Corpuscular Hemoglobin 30.4 28.0-32.0 pg Mean Corpuscular Hemoglobin Concent 32.4 32.0-36.0 g/dL Red Cell Distribution Width 14.4 H 11.8-14.3 % Platelet Count 209 140-450 10^3/uL Mean Platelet Volume 8.9 6.9-10.8 fL Neutrophils (%) (Auto) 37.0-80.0 % Lymphocytes (%) (Auto) 10.0-50.0 % Monocytes (%) (Auto) 0.0-12.0 % Basophils (%) (Auto) 0.0-2.0 % Neutrophils # (Auto) 1.6-8.6 10 ^3/uL Lymphocytes # (Auto) 0.4-5.4 10 ^3/uL Monocytes # (Auto) 0-1.3 10 ^3/uL Differential Total Cells Counted 100.0 100 Neutrophils % (Manual) 33 L 37.0-80.0 Band Neutrophils % (Manual) 0 Lymphocytes % (Manual) 60 H 10.0-50.0 Monocytes % (Manual) 4 0-12 Eosinophils % (Manual) 3 0-7 Basophils % (Manual) 0 0.0-2.0 Metamyelocytes % (manual) 0 Myelocytes % (Manual) 0 Promyelocytes % (Manual) 0 Blast Cells % (Manual) 0 Reactive Lymphocytes 0 Platelet Estimate Adequate Anisocytosis (manual) Slight Sodium Level 139 136-145 mmol/L Potassium Level 4.1 3.5-5.1 mmol/L Chloride Level 106 98-107 mmol/L Carbon Dioxide Level 26 20-31 mmol/L Anion Gap 7 5-15 Blood Urea Nitrogen 12 9-23 mg/dL Creatinine 0.93 0.550-1.02 mg/dL Glomerular Filtration Rate Calc 85 >90 mL/min BUN/Creatinine Ratio 12.9 10.0-20.0 Serum Glucose 95 74-106 mg/dL Calcium Level 9.8 8.7-10.4 mg/dL Troponin I High Sensitivity < 3 L </=34 ng/L B-Type Natriuretic Peptide 7.67 0-100 pg/mL Beta HCG, Quantitative 0.2 L 1.5-4.2 mIU/mL Current Medications Medications (Trade) Dose Ordered Sig/Ariadna Route Start Time Stop Time Status Last Admin Albuterol (Ventolin Medneb) 5 mg ONCE ONCE NEB 06/16/24 14:45 06/16/24 14:46 DC 06/16/24 17:12 Ipratropium [place] (Atrovent Medneb) 0.5 mg ONCE ONCE NEB 06/16/24 14:45 06/16/24 14:46 DC 06/16/24 17:12 Dexamethasone Sodium Phosphate (Decadron Injection) 10 mg ONCE ONCE IM 06/16/24 14:45 06/16/24 14:46 DC 06/16/24 17:08 X-Ray, Labs, Meds, VS Comment 29 y.o female with PMHx of Bronchitis, glaucoma, seasonal allergies, presents to the ED for a chief complaint of substernal chest pain associated with SOB, productive cough, and clear phlegm sputum. Vitals unremarkable Exam remarkable for minimal scattered rhonchi and productive sounding cough. No respiratory distress. Rhythm strip independently interpreted by me: Sinus rhythm, rate 79, no ectopy. Chest x-ray CBC, metabolic panel, hCG, BNP and troponin unremarkable for any abnormality of acute significance Patient treated with the following in the ED: Albuterol 5 mg/Atrovent 0.5 mg nebulized, Decadron 10 mg IM Patient was called multiple times for re-evaluation and for chest x-ray, however apparently she had been waiting in her car and it was assumed she had eloped. Chest x-ray was canceled due to the patient not answering when called. It was reordered when the patient re-emerged from her car wondering she was going to be discharged. On re-evaluation, patient states she is no longer short of breath. She has well-appearing with stable vitals. Chest x-ray was reordered, however patient refused chest x-ray stating she would prefer to just go home. Patient appears stable for discharge with close outpatient follow-up with her primary physician. Rx albuterol, ibuprofen, doxycycline, Mucinex Time of 1ST Reevaluation: 14:48 Reevaluation 1ST: Unchanged Patient Education/Counseling: Diagnosis, Treatment, Prognosis Family Education/Counseling: No Family Present Departure 1 Departure Time of Disposition: 20:13 Impression: Primary Impression: Acute cough Additional Impression: Bronchospasm with bronchitis, acute Disposition: 01 HOME / SELF CARE / HOMELESS Condition: Stable Additional Instructions: Your blood tests, including screening tests for heart attack and heart failure, were unremarkable. I have prescribed an inhaler and antibiotics to treat a possible bacterial respiratory infection, as well as pain medication. Follow-up with your primary doctor in 1-2 days. Return to ER for persistent or worsening symptoms. e-Prescriptions Guaifenesin (Mucinex) 600 Mg Tab 1 TAB PO BID PRN, #20 TAB Prn cough or congestion Prov: MILLICENT HOWARD MD 06/16/24 Ibuprofen Micronized (Ibuprofen) 600 Mg Tab 600 MG PO Q6HPRN PRN, #30 TAB Prn fever or pain, take with food Prov: MILLICENT HOWARD MD 06/16/24 Doxycycline (Monohydrate) (Doxycycline) 100 Mg Tab 100 MG PO BID for 10 Days, #20 TAB Prov: MILLICENT HOWARD MD 06/16/24 Albuterol Sulfate (Albuterol Sulfate Hfa) 108 Mcg/Act Aer 2 PUFF IN Q6HP PRN, #1 AER Prn difficulty breathing Prov: MILLICENT HOWARD MD 06/16/24 Critical Care Note Critical Care Time?: No Stability Stability form required: No Heart Score Heart Score: Heart Score Response (Comments) Value History N/A 0 EKG N/A 0 Age N/A 0 Risk Factors N/A 0 Troponin N/A 0 Total 0 I personally scribed for MILLICENT HOWARD MD ([email or web address]) on 06/16/24 at 14:53. Electronically submitted by Shanice Dunn ([facility]). MILLICENT HOWARD MD Jun 16, 2024 14:53
[2024-06-16 15:55] LABS: Hematocrit 39.5 % (36.0-46.0); Hemoglobin 12.8 g/dL (12.2-16.2); Mean Corpuscular Hemoglobin 30.4 pg (28.0-32.0); Mean Corpuscular Hgb Conc. 32.4 g/dL (32.0-36.0); Platelet Count (auto) 209 10^3/uL (140-450); Red Blood Cells 4.21 10^6/uL (4.0-5.20); Red Cell Distribution Width 14.4 % (11.8-14.3); White Blood Cell 4.5 10^3/uL (4.4-10.8)
[2024-06-16 16:00] LABS: Band Neutrophils % (manual) 0; Basophils % (manual) 0 (0.0-2.0); Blast Cells 0; Metamyelocytes % 0; Myelocytes % 0; Promyelocytes % 0; Reactive Lymphocytes 0
[2024-06-16 16:02] LABS: Chloride 106 mmol/L (98-107); Potassium 4.1 mmol/L (3.5-5.1); Sodium 139 mmol/L (136-145)
[2024-06-16 16:03] LABS: Anion Gap 7 (5-15); Calcium 9.8 mg/dL (8.7-10.4); Carbon Dioxide 26 mmol/L (20-31)
[2024-06-16 16:08] LABS: Glucose 95 mg/dL (74-106)
[2024-06-16 16:09] LABS: BUN/Creatinine Ratio 12.9 (10.0-20.0); Blood Urea Nitrogen 12 mg/dL (9-23)
[2024-06-16 16:46] LABS: Anisocytosis Slight; Eosinophils % (manual) 3 (0-7); Lymphocytes % (manual) 60 (10.0-50.0); Monocytes % (manual) 4 (0-12); Platelet Estimate Adequate
[2024-06-16] MEDS: DexAMETHasone SOD PHOS 10MG/1ML VIAL INJ IM ONE (17:08)
[2024-06-16 17:11] VITALS: PULSE 74; RESP 16; O2SAT 100
[2024-06-16] MEDS: ALBUTEROL SULF 2.5 MG/0.5ML(0.5%) NEB SOLN NEB ONE (17:12)
[2024-06-16] MEDS: IPRATROPIUM BROM 0.5 MG/2.5ML INH SOL NEB ONE (17:12)
[2024-06-16] MEDS ORDERED: DOXY-346 PO (20:18)
[2024-06-16] MEDS ORDERED: ALBU108A5 IN (20:18)
[2024-06-16] MEDS ORDERED: IBUP1TAB5 PO (20:18)
[2024-06-16] MEDS ORDERED: GUAI600T78 PO (20:18)
[2024-06-16 20:44] VITALS: BP 122/68; PULSE 85; RESP 20; TEMP 98; O2SAT 99
== END 2024-06-16 20:43 | disposition left against medical advice (07) ==
LOC: ER 14:05
DX: J20.9 Acute bronchitis, unspecified (principal); Z98.890 Other specified postprocedural states
CPT/HCPCS: 36415; 80048; 83880; 84484; 84702; 85007; 85027; 94640; 96372; 99283; J1100

== ENCOUNTER 2024-09-15 19:19 | Emergency (ER) | payer MEDICAID ==
[~2024-09-15] VITALS: Ht 167.6 cm; Wt 92.8 kg
[~2024-09-15 19:19] MED LIST changes: +ALBU108A5 IN; +DOXY-346 PO; +GUAI600T78 PO; +IBUP1TAB5 PO
--- NOTE | 2024-09-15 19:41 | ED.PDOC ---
GI ASSESSMENT HPI Comments 29y F who presents to the ED for chief complaint of abdominal pain. Pt states she has bee having epigastric abdominal pain for the past 2 days. Pt states her pain is constant, non-radiating, with no associated exacerbating or relieving factors. Pt has associated nausea, vomiting and 1 x diarrhea episode earlier this AM but otherwise denies any other symptoms. Pt denies any recent sick contacts or changes to diet. Pt otherwise denies any other symptoms at this time. Time Seen by MD: 19:36 Primary Care Provider: saad Rangel Notes: Medications, Allergies Allergies: Coded Allergies: NO KNOWN ALLERGIES (Unverified , 07/30/17) Home Meds Active Scripts Pantoprazole Sodium Sesquihydr (Protonix) 40 Mg Tab, 40 MG PO DAILY, #30 TAB Prov:CYNTHIA BEAVERS MD 09/15/24 Ondansetron Odt 4MG Tab (ZOFRAN PO) 4 Mg Tb, 4 MG PO Q8HP PRN for 5 Days, #15 TAB ODT TAB-DISSOLVE IN MOUTH, THEN SWALLOW Prov:CYNTHIA BEAVERS MD 09/15/24 Guaifenesin (Mucinex) 600 Mg Tab, 1 TAB PO BID PRN, #20 TAB Prn cough or congestion Prov:MILLICENT HOWARD MD 06/16/24 Ibuprofen Micronized (Ibuprofen) 600 Mg Tab, 600 MG PO Q6HPRN PRN, #30 TAB Prn fever or pain, take with food Prov:MILLICENT HOWARD MD 06/16/24 Doxycycline (Monohydrate) (Doxycycline) 100 Mg Tab, 100 MG PO BID for 10 Days, #20 TAB Prov:MILLICENT HOWARD MD 06/16/24 Albuterol Sulfate (Albuterol Sulfate Hfa) 108 Mcg/Act Aer, 2 PUFF IN Q6HP PRN, #1 AER Prn difficulty breathing Prov:MILLICENT HOWARD MD 06/16/24 Azithromycin (ZITHROMAX TABLET) 250 Mg Tb, 250 MG PO DAILY for 5 Days, #5 TAB Prov:STEPHENIE JOHNSON MD 03/25/24 Information Source: Patient Mode of Arrival: Ambulatory Brought in by: self Timing: Days Duration: Since onset Prehospital treatment: None Quality: Aching Vomitus: Soft Stool: Gross Severity: Moderate Recent: None Recent Hx of: None Pain Location: Epigastric Modifying Factors: Nothing Associated sign and symptoms: Nausea, Vomiting, Diarrhea, Abdominal Pain Past Medical History PAST MEDICAL HISTORY: Denies 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 Family History Family History: Reviewed,noncontributory to illness Social History Smoker: Non-Smoker Alcohol: Occasionally Drugs: Marijuana Lives In: Home Constitutional: denies: chills, diaphoresis, fatigue, fever, malaise, sweats, weakness, others EENTM: denies: blurred vision, double vision, ear bleeding, ear discharge, ear drainage, ear pain, ear ringing, eye pain, eye redness, hearing loss, mouth pain, mouth swelling, nasal discharge, nose bleeding, nose congestion, nose pain, photophobia, tearing, throat pain, throat swelling, voice changes, others Respiratory: denies: cough, hemoptysis, orthopnea, SOB at rest, shortness of breath, SOB with excertion, stridor, wheezing, others Cardiovascular: denies: chest pain, dizzy spells, diaphoresis, Dyspnea on exertion, edema, irregular heart beat, left arm pain, lightheadedness, palpitati ons, PND, syncope, others Gastrointestinal: reports: abdominal pain, diarrhea, nausea, vomiting; denies: abdomen distended, blood streaked bowels, constipated, dysphagia, difficulty swallowing, hematemesis, melena, poor appetite, poor fluid intake, rectal bleeding, rectal pain, others Genitourinary: denies: abnormal vagina bleeding, burning, dyspareunia, dysuria, flank pain, frequency, hematuria, incontinence, pain, , vagina discharge, urgency, others Neurological: denies: dizziness, fainting, headache, left sided numbness, left sided weakness, numbness, paresthesia, pre-existing deficit, right sided nu mbness, right sided weakness, seizure, speech problems, tingling, tremors, weakness, others Musculoskeletal: denies: back pain, gout, joint pain, joint swelling, muscle pain, muscle stiffness, neck pain, others Integumetry: denies: bruises, change in color, change in hair/nails, dryness, laceration, lesions, lumps, rash, wounds, others Allergic/Immunocompromised: denies: Difficulty Healing, Frequent Infections, Hives, Itching, others Hematologic/Lymphatic: denies: anemia, blood clots, easy bleeding, easy bruising, swollen glands, others Endocrine: denies: excessive hunger, excessive sweating, excessive thirst, excessive urination, flushing, intolerance to cold, intolerance to heat, unexplained weight gain, unexplained weight loss, others Psychiatric: denies: anxiety, bipolar disorder, depression, hopeless, panic disorder, schizophrenia, sleepless, suicidal, others All Other Systems: Reviewed and Negative Physical Exam General Appearance: Mild Distress HEENT: Normal ENT Inspection, Pharynx Normal, TMs Normal Neck: Full Range of Motion, Non-Tender, Normal, Normal Inspection Respiratory: Chest Non-Tender, Lungs Clear, No Accessory Muscle Use, No Respiratory Distress, Normal Breath Sounds Cardiovascular: No Edema, No JVD, No Murmur, No Gallop, Normal Peripheral Pulses, Regular Rate/Rhythm Breast Exam: Deferred Gastrointestinal: No Organomegaly, Non Tender, No Pulsatile Mass, Normal Bowel Sounds, Soft Genitalia: Deferred Pelvic: Deferred Rectal: Deferred Extremities: No calf tenderness, Normal capillary refill, Normal inspection, Normal range of motion, Non-tender, No pedal edema Musculoskeletal : Apperance: Normal Neurologic: Alert, 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 Was a procedure done?: No GI differential Dx Differential Diagnosis: Cholecystitis, Esophagitis, Gastritis/PUD, Gastroenteritis, Pancreatitis, Dehydration, Food Poisoning, Bacterial, Viral Other Differential Diagnosis fatty liver, marijuaua use disorder, X-Ray, Labs, Meds, VS Vital Signs Date Time Temp Pulse Resp B/P (MAP) Pulse Ox O2 Delivery O2 Flow Rate FiO2 09/15/24 19:43 98.1 81 20 103/63 (76) 99 98.1 Lab Test 09/15/24 19:59 09/15/24 19:44 Range/Units Urine Color Yellow Yellow Urine Clarity Clear Clear Urine pH 5.5 5.0-9.0 Urine Specific [place] 1.032 1.001-1.035 Urine Protein Trace H Negative Urine Ketones Trace Negative Urine Blood Negative Negative /uL Urine Nitrite Negative Negative Urine Bilirubin Negative Negative Urine Urobilinogen Normal Negative mg/dL Urine Leukocyte Esterase Negative Negative /uL Urine RBC None seen 0 - 4 /hpf Urine Microscopic WBC 1 0-5 /HPF Urine Squamous Epithelial Cells Few <5 /hpf Urine Bacteria None seen None Seen /hpf Urine Mucus Few None Seen Urine Glucose Normal Normal mg/dL White Blood Count 6.1 4.4-10.8 10^3/uL Red Blood Count 4.11 4.0-5.20 10^6/uL Hemoglobin 12.8 12.2-16.2 g/dL Hematocrit 38.5 36.0-46.0 % Mean Corpuscular Volume 93.8 80.0-100.0 fL Mean Corpuscular Hemoglobin 31.1 28.0-32.0 pg Mean Corpuscular Hemoglobin Concent 33.1 32.0-36.0 g/dL Red Cell Distribution Width 14.6 H 11.8-14.3 % Platelet Count 246 140-450 10^3/uL Mean Platelet Volume 8.2 6.9-10.8 fL Neutrophils (%) (Auto) 54.2 37.0-80.0 % Lymphocytes (%) (Auto) 37.1 10.0-50.0 % Monocytes (%) (Auto) 7.3 0.0-12.0 % Eosinophils (%) (Auto) 1.2 0.0-7.0 % Basophils (%) (Auto) 0.2 0.0-2.0 % Neutrophils # (Auto) 3.3 1.6-8.6 10 ^3/uL Lymphocytes # (Auto) 2.3 0.4-5.4 10 ^3/uL Monocytes # (Auto) 0.4 0-1.3 10 ^3/uL Eosinophils # (Auto) 0.1 0-0.8 10 ^3/uL Basophils # (Auto) 0 0-0.2 10 ^3/uL Nucleated Red Blood Cells 0.1 % Sodium Level 142 136-145 mmol/L Potassium Level 3.5 3.5-5.1 mmol/L Chloride Level 109 H 98-107 mmol/L Carbon Dioxide Level 26 20-31 mmol/L Anion Gap 7 5-15 Blood Urea Nitrogen 8 L 9-23 mg/dL Creatinine 0.78 0.550-1.02 mg/dL Glomerular Filtration Rate Calc 105 >90 mL/min BUN/Creatinine Ratio 10.3 10.0-20.0 Serum Glucose 77 74-106 mg/dL Calcium Level 9.2 8.7-10.4 mg/dL Total Bilirubin 0.2 0.2-1.0 mg/dL Aspartate Amino Transferase (AST) 11 L 13-40 U/L Alanine Aminotransferase (ALT) 11 7-40 U/L Alkaline Phosphatase 75 46-116 U/L Total Protein 6.5 5.7-8.2 g/dL Albumin 4.2 3.2-4.8 g/dL Lipase 29 12-53 U/L The patient's CBC is within normal limits The chemistry panel is within normal limits. The patient's urine test is negative for infection At this time, the patient is being discharged and will follow up with the primary care doctor The patient will return to the emergency department's condition worsens The patient was given leg Protonix 40 mg IV push and Compazine 10 mg IV push The patient was given normal saline as a bolus The patient is discharged The patient is given a prescription of Zofran as well as Protonix Images Reviewed?: Images reviewed and evaluated by me Time of 1ST Reevaluation: 20:10 Reevaluation 1ST: Unchanged Patient Education/Counseling: Diagnosis, Treatment Family Education/Counseling: No Family Present Departure 1 Departure Time of Disposition: 20:37 Impression: Primary Impression: Gastroenteritis Disposition: 01 HOME / SELF CARE / HOMELESS Condition: Fair e-Prescriptions Pantoprazole Sodium Sesquihydr (Protonix) 40 Mg Tab 40 MG PO DAILY, #30 TAB Prov: CYNTHIA BEAVERS MD 09/15/24 Ondansetron Odt 4MG Tab (ZOFRAN PO) 4 Mg Tb 4 MG PO Q8HP PRN for 5 Days, #15 TAB ODT TAB-DISSOLVE IN MOUTH, THEN SWALLOW Prov: CYNTHIA BEAVERS MD 09/15/24 Discharged With: Self Critical Care Note Critical Care Time?: No Stability Stability form required: No Heart Score Heart Score: Heart Score Response (Comments) Value History N/A 0 EKG N/A 0 Age N/A 0 Risk Factors N/A 0 Troponin N/A 0 Total 0 I personally scribed for CYNTHIA BEAVERS MD ([email or web address]) on 09/15/24 at 19:41. Electronically submitted by Diana De La Cruz ([email or web address]). CYNTHIA BEAVERS MD Sep 15, 2024 19:41
[2024-09-15 20:00] LABS: Urine Bacteria None Seen /hpf (None Seen)
[2024-09-15 20:05] LABS: Basophils # (auto) 0 10 ^3/uL (0-0.2); Basophils % (auto) 0.2 % (0.0-2.0); Eosinophils # (auto) 0.1 10 ^3/uL (0-0.8); Eosinophils % (auto) 1.2 % (0.0-7.0); Hematocrit 38.5 % (36.0-46.0); Hemoglobin 12.8 g/dL (12.2-16.2); Lymphocytes # (auto) 2.3 10 ^3/uL (0.4-5.4); Lymphocytes % (auto) 37.1 % (10.0-50.0); Mean Corpuscular Hemoglobin 31.1 pg (28.0-32.0); Mean Corpuscular Hgb Conc. 33.1 g/dL (32.0-36.0); Mean Corpuscular Volume 93.8 fL (80.0-100.0); Monocytes # (auto) 0.4 10 ^3/uL (0-1.3); Monocytes % (auto) 7.3 % (0.0-12.0); Neutrophils # (auto) 3.3 10 ^3/uL (1.6-8.6); Neutrophils % (auto) 54.2 % (37.0-80.0); Nucleated Red Blood Cells % 0.1 %; Platelet Count (auto) 246 10^3/uL (140-450); Red Blood Cells 4.11 10^6/uL (4.0-5.20); Red Cell Distribution Width 14.6 % (11.8-14.3); White Blood Cell 6.1 10^3/uL (4.4-10.8)
[2024-09-15 20:10] LABS: Urine Blood Negative /uL (Negative); Urine Clarity Clear (Clear); Urine Color Yellow (Yellow); Urine Mucus FEW (None Seen); Urine Protein, UAD TRACE (Negative); Urine Specific Gravity 1.032 (1.001-1.035); Urine Squamous Epithelial Cell FEW /hpf (<5); Urine Urobilinogen Normal (Negative); Urine WBC 1 /HPF (0-5); Urine pH 5.5 (5.0-9.0)
[2024-09-15 20:20] LABS: Alanine Aminotransferase 11 U/L (7-40); Albumin 4.2 g/dL (3.2-4.8); Alkaline Phosphatase 75 U/L (46-116); Anion Gap 7 (5-15); BUN/Creatinine Ratio 10.3 (10.0-20.0); Calcium 9.2 mg/dL (8.7-10.4); Carbon Dioxide 26 mmol/L (20-31); Glucose 77 mg/dL (74-106); Lipase 29 U/L (12-53); Sodium 142 mmol/L (136-145); Total Protein 6.5 g/dL (5.7-8.2)
[2024-09-15 20:21] LABS: Aspartate Aminotransferase 11 U/L (13-40); Bilirubin, Total 0.2 mg/dL (0.2-1.0); Blood Urea Nitrogen 8 mg/dL (9-23); Chloride 109 mmol/L (98-107); Potassium 3.5 mmol/L (3.5-5.1)
[2024-09-15] MEDS ORDERED: ZOFR4T PO (20:36)
[2024-09-15] MEDS ORDERED: PANT40TA2 PO (20:36)
[2024-09-15] MEDS: SODIUM CHLORIDE 0.9% 1,000 ML IVB ONE (21:31)
[2024-09-15] MEDS: PANTOPRAZOLE 40 MG/10 ML VIAL INJ IV ONE (21:33)
[2024-09-15] MEDS: PROCHLORPERAZINE EDISYLATE 5 MG/ML 2ML VIAL IV ONE (21:34)
[2024-09-15 22:07] VITALS: BP 110/72; PULSE 78; RESP 16; TEMP 98
[2024-09-15 22:08] VITALS: O2SAT 99
== END 2024-09-15 22:35 | disposition home or self-care (01) ==
LOC: ER 19:19
DX: K52.9 Noninfective gastroenteritis and colitis, unspecified (principal); F12.90 Cannabis use, unspecified, uncomplicated; Z79.899 Other long term (current) drug therapy
CPT/HCPCS: 36415; 80053; 81001; 83690; 85025; 96361; 96374; 96375; 99284; J0780; J2470; J7030